=== PATIENT | male | born 1975 | race Caucasian/White ===

== ENCOUNTER 2021-08-01 00:51 | Emergency (ER) | payer OTHER, MEDICAID ==
[~2021-08-01] VITALS: Ht 182.9 cm; Wt 88.5 kg
[2021-08-01] MEDS ORDERED: ZOFRAN ODT4 MG PO (02:04)
[2021-08-01] MEDS ORDERED: AUGMENTIN 875-1 EACH PO (02:04)
[2021-08-01 02:13] VITALS: BP 115/74
== END 2021-08-01 02:14 | disposition home or self-care (01) ==
LOC: M.ERS 00:51
DX: U07.1 COVID-19 (principal); J12.82 Pneumonia due to coronavirus disease 2019; Z88.1 Allergy status to other antibiotic agents; Z88.8 Allergy status to other drugs, medicaments and biological substances

== ENCOUNTER 2021-08-09 04:34 | Emergency (ER) | payer OTHER, MEDICAID ==
[~2021-08-09] VITALS: Ht 190.5 cm; Wt 88.5 kg
[~2021-08-09 04:34] MED LIST: AUGMENTIN 875-1 EACH PO; ZOFRAN ODT4 MG PO
[2021-08-09] MEDS ORDERED: ACETAMINOPHEN-1 EAC2 PO (06:21)
[2021-08-09] MEDS ORDERED: IBUPROFEN 800800 MG PO (06:21)
[2021-08-09] MEDS ORDERED: PHENERGAN 25 MG25 M1 PO (06:21)
[2021-08-09 07:01] VITALS: BP 122/78
== END 2021-08-09 07:01 | disposition home or self-care (01) ==
LOC: M.ERS 04:34
DX: U07.1 COVID-19 (principal); J12.82 Pneumonia due to coronavirus disease 2019; S20.211A Contusion of right front wall of thorax, initial encounter; Z88.8 Allergy status to other drugs, medicaments and biological substances; W19.XXXA Unspecified fall, initial encounter; Y93.89 Activity, other specified; Y92.89 Other specified places as the place of occurrence of the external cause; Y99.8 Other external cause status